=== PATIENT | male | born 1975 | race Hispanic/Latino ===

== ENCOUNTER 2016-07-27 17:15 | Inpatient (IN) | payer MEDICARE ==
[2016-07-27 17:20] VITALS: O2SAT 98
--- NOTE | 2016-07-27 17:58 | ED PDOC ---
HPI: Psych/Substance Abuse Time Seen by Provider: 07/27/16 17:23 Chief Complaint (Nursing): Psychiatric Evaluation Chief Complaint (Provider): depressed History Per: Patient Onset/Duration Of Symptoms: Days (2 weeks) Current Symptoms Are (Timing): Still Present Associated Symptoms: Depression, Suicidal Thoughts, Suicidal Plan (to take pills "wherever I can get them") Additional Complaint(s): Pressure in his head for about 2 years. Past Medical History Reviewed: Historical Data, Nursing Documentation, Vital Signs Vital Signs: Last Vital Signs Temp 99.8 F H 07/27/16 17:17 Pulse 85 07/27/16 17:17 Resp 18 07/27/16 17:17 BP 120/71 07/27/16 17:17 Pulse Ox 98 07/27/16 17:17 - Medical History PMH: Back Problems, Depression Other PMH: CP - Family History Family History: States: Unknown Family Hx - Immunization History Hx Tetanus Toxoid Vaccination: Yes Hx Influenza Vaccination: Yes Hx Pneumococcal Vaccination: No - Home Medications Home Medications: Ambulatory Orders Medication Instructions Recorded Cyclobenzaprine [Flexeril] 5 mg PO TID #90 tab 07/01/16 Escitalopram [Lexapro] 10 mg PO DAILY #30 tab 07/01/16 Pantoprazole [Protonix EC Tab] 40 mg PO BID #60 ect 07/01/16 traZODone [Desyrel] 50 mg PO HS #30 tab 07/01/16 Aspirin [Ecotrin] 81 mg PO DAILY #30 07/13/16 Ergocalciferol [Drisdol 50,000 1 cap PO Q7D #4 cap 07/13/16 Intl Units Cap] Escitalopram [Lexapro] 20 mg PO DAILY #30 tab 07/13/16 Meclizine [Meclizine*] 25 mg PO DAILY #30 tab 07/13/16 hydrOXYzine HCl [Atarax] 25 mg PO BID PRN #60 tab 07/13/16 - Allergies Allergies/Adverse Reactions: Allergies Allergy/AdvReac Type Severity Reaction Status Date / Time phenobarbital Allergy SHORTNESS Verified 07/27/16 17:35 OF BREATH Review of Systems ROS Statement: Except As Marked, All Systems Reviewed And Found Negative (and as per HPI) Gastrointestinal: Positive for: Nausea, Abdominal Pain Neurological: Positive for: Headache, Dizziness. Negative for: Altered Mental Status Psych: Positive for: Depression, Suicidal ideation Physical Exam - Reviewed Nursing Documentation Reviewed: Yes Vital Signs Reviewed: Yes - Physical Exam Appears: Positive for: Non-toxic, In Acute Distress (very sad) Head Exam: Positive for: ATRAUMATIC Skin: Positive for: Dry Eye Exam: Positive for: EOMI, PERRL ENT: Positive for: Other (dry muc memb) Neck: Positive for: Painless ROM, Supple Cardiovascular/Chest: Positive for: Regular Rate, Rhythm, Chest Non Tender. Negative for: Murmur Respiratory: Positive for: Normal Breath Sounds. Negative for: Accessory Muscle Use, Respiratory Distress Gastrointestinal/Abdominal: Positive for: Soft. Negative for: Tenderness Back: Positive for: Normal Inspection. Negative for: Vertebral Tenderness Extremity: Positive for: Normal ROM. Negative for: Pedal Edema Lymphatic: Negative for: Adenopathy Neurologic/Psych: Positive for: Alert, Mood/Affect (sad affect, depressed mood) . Negative for: Motor/Sensory Deficits - Laboratory Results Result Diagrams: 07/27/16 18:20 07/27/16 18:20 Interpretation Of Abn Labs: Mild anemia, otherwise no clinically significant lab abnormalities - ECG ECG: Positive for: Interpreted By Wi ECG Rhythm: Positive for: Normal QRS, Normal ST Segment, Sinus Rhythm O2 Sat by Pulse Oximetry: 98 Pulse Ox Interpretation: Normal - Radiology X-Ray: Interpreted by Wi X-Ray Interpretation: No Acute Disease - Progress ED Course And Treament: 6p Evaluated by CW and pt to be admitted for depression pending medical clearance 1929 Medically stable for psychiatric admission Disposition - Clinical Impression Clinical Impression: Depression - Disposition Disposition Time: 18:00 Condition: SERIOUS - Pt Status Changed To: Hospital Disposition Of: Inpatient - Admit Certification Admit to Inpatient:: After my assessment, the patient will require hospitalization for at least two midnights. This is because of the severity of symptoms shown, intensity of services needed, and/or the medical risk in this patient being treated as an outpatient. - POA Present On Arrival: None
[2016-07-27 18:28] LABS: BASO # 0.1 K/uL (0.0-0.2); BASO % 0.8 % (0.0-2.0); EOS # 0.3 K/uL (0.0-0.7); EOS % 3.6 % (0.0-4.0); HEMOGLOBIN 10.4 g/dL (12.0-18.0); LYMPH # 2.7 K/uL (1.0-4.3); LYMPH % 29.9 % (20.0-40.0); MEAN CELL VOLUME 79.8 fl (80.0-94.0); MEAN CORPUSCULAR HGB CONC 31.4 g/dL (33.0-37.0); MEAN PLATELET VOLUME 7.6 fl (7.2-11.7); MONO # 0.8 K/uL (0.0-0.8); MONO % 9.1 % (0.0-10.0); NEUT # 5.1 K/uL (1.8-7.0); NEUT % 56.6 % (50.0-75.0); RBC 4.15 Mil/uL (4.40-5.90); RED CELL DISTRIBUTION WIDTH 17.4 % (11.5-14.5)
[2016-07-27 18:47] LABS: ALB/GLOB RATIO 1.5 (1.0-2.1); ALBUMIN 4.6 g/dL (3.5-5.0); ALT/SGPT 32 U/L (21-72); AST/SGOT 29 U/L (17-59); BLOOD UREA NITROGEN 17 mg/dl (9-20); CALCIUM 9.5 mg/dL (8.4-10.2); GFR AFRICAN-AMERICAN > 60; GFR NON-AFRICAN AMERICAN > 60; MAGNESIUM 2.3 MG/DL (1.6-2.3)
[2016-07-27 20:10] LABS: BARBITURATES, UR NEGATIVE (NEGATIVE); BENZODIAZEPINES, UR NEGATIVE (NEGATIVE); OPIATES, UR NEGATIVE (NEGATIVE); PHENCYCLIDINE, UR NEGATIVE (NEGATIVE)
[2016-07-27] MEDS ORDERED: Alum-Mag Hydrox-Simethicone Susp (30 mL) PO PRN (21:24)
[2016-07-27] MEDS ORDERED: DiphenhydrAMINE 50 mg/ml Inj IM PRN (21:24)
[2016-07-27] MEDS ORDERED: Magnesium Hydroxide Susp 30 ml UD PO PRN (21:24)
[2016-07-28 09:19] LABS: T4 6.16 ug/dl (5.5-11.0)
--- NOTE | 2016-07-28 10:50 | RAD ---
HISTORY: admission depression COMPARISON: None available. TECHNIQUE: Chest, one view. FINDINGS: LUNGS: No focal consolidation. Please note that chest x-ray has limited sensitivity for the detection of pulmonary masses. PLEURA: No significant pleural effusion identified. No definite pneumothorax . CARDIOVASCULAR: The cardiomediastinal silhouette appears within normal limits of size. OSSEOUS STRUCTURES: Partially imaged spinal fusion hardware, lumbar spine. VISUALIZED UPPER ABDOMEN: Unremarkable. OTHER FINDINGS: None. IMPRESSION: No focal consolidation, significant pleural effusion, or definite pneumothorax identified.
--- NOTE | 2016-07-28 11:42 | PCM.PSYCH ---
Initial Psychiatric Evaluation - Initial Psychiatric Evaluation Type of Admission: Voluntary Legal Status: Capacity Chief Complaint (in patient's own words): i need a better living situation Patient's Reaction to Hospitalization: ambivalent about treatment History of Present Illness and Precipitating Events: pt was recently at [facility] and discharged a few weeks ago. he did not fill his prescriptions, nor did he f/u with treatment. he presented to the ER c/ o feeling suicidal. he states he is depressed, but that nothing helps him. he states he needs stable housing and lack of housing is his major stressor. he reports he has thoughts to overdose and states "if i had pills with my i wouldn' t be here." he is somewhat vague and evasive with details of his depression and treatment in the past. he just shrugs and states nothing really helps. he denies any plan to harm self in the hospital. he is not attending groups this am. Current Medications: Active Medications Generic Name Dose Route Start Last Admin Trade Name Freq PRN Reason Stop Dose Admin Acetaminophen 650 mg 07/27/16 21:24 Tylenol 325mg Tab PO Q4 PRN Pain, moderate (4-7) Al Hydrox/Mg Hydrox/Simethicone 30 ml 07/27/16 21:24 Maalox Plus 30 Ml PO Q4 PRN Dyspepsia Diphenhydramine HCl 50 mg 07/27/16 21:24 Benadryl IM Q6 PRN Extrapyramidal S/S Unable PO Diphenhydramine HCl 50 mg 07/27/16 21:24 Benadryl PO Q6 PRN Extrapyramidal Symptoms Diphenhydramine HCl 50 mg 07/27/16 21:31 Benadryl PO HS PRN Sleep Escitalopram Oxalate 20 mg 07/28/16 11:15 Lexapro PO DAILY STEPHANIE Haloperidol 5 mg 07/27/16 21:24 Haldol PO Q4 PRN Agitation Haloperidol Lactate 5 mg 07/27/16 21:24 Haldol IM Q4 PRN Agitation, Unable to Take PO Lorazepam 2 mg 07/27/16 21:24 Ativan IM Q4 PRN Anxiety/Agitation,Unable PO Lorazepam 2 mg 07/27/16 21:24 Ativan PO Q4 PRN Anxiety/Agitation Magnesium Hydroxide 30 ml 07/27/16 21:24 Milk Of Magnesia PO HS PRN Constipation Trazodone HCl 50 mg 07/28/16 22:00 Desyrel PO HS [facility] Past Psychiatric History - Past Psychiatric History Previous Treatment History: Inpatient Prior Professional Help: will not give details of prior medication trials Prior Psychiatric Treatment: [facility] recently History of Abuse: does not answer History of ETOH/Drug Use: history of cocaine, opioid dependence- pt denies recent use. uds negative from this admission. History of Family Illness: unknown Pertinent Medical Hx (Current Medical&Sleep Prob, Allergies): Allergies Allergy/AdvReac Type Severity Reaction Status Date / Time phenobarbital Allergy SHORTNESS Verified 07/27/16 17:35 OF BREATH Cyclobenzaprine [Flexeril] 5 mg PO TID #90 tab 07/01/16 Escitalopram [Lexapro] 10 mg PO DAILY #30 tab 07/01/16 Pantoprazole [Protonix EC Tab] 40 mg PO BID #60 ect 07/01/16 traZODone [Desyrel] 50 mg PO HS #30 tab 07/01/16 Aspirin [Ecotrin] 81 mg PO DAILY #30 07/13/16 Ergocalciferol [Drisdol 50,000 Intl Units Cap] 1 cap PO Q7D #4 cap 07/13/16 Escitalopram [Lexapro] 20 mg PO DAILY #30 tab 07/13/16 Meclizine [Meclizine*] 25 mg PO DAILY #30 tab 07/13/16 hydrOXYzine HCl [Atarax] 25 mg PO BID PRN #60 tab 07/13/16 history of chronic back pain. Review of Systems - Psychiatric Psychiatric: As Per HPI Mental Status Examination - Personal Presentation Personal Presentation: Looks stated age Additional comments: avoids eye contact, unkempt - Affect Affect: Blunted - Motor Activity Motor Activity: Calm - Reliability in Providing Information Reliability in Providing Information: Other (evasive) - Speech Speech: Organized - Mood Mood: Depressed - Formal Thought Process Formal Thought Process: No Impairment Additional comments: denies a/v hallucinations - Obsessions/Compulsions Obsessions: No Compulsions: No - Cognitive Functions Orientation: Person, Place, Situation, Time Sensorium: Alert Attention/Concentration: Attentive Abstract Thinking: Bradley Estimate of Intelligence: Average Judgement: Intact, as evidence by: Insight regarding need for hospitalization Memory: Recent intact, as evidence by: Ability to recall events of the day, Remote intact, as evidenced by: Abilit to recall sig. life events - Risk Risk: Suicidal (reports plan but no intent to harm self in hospital. ) - Strength & Assets Inventory Strength & Assets Inventory: Intelligence DSM 5 DX - DSM 5 DSM 5 Diagnosis: major depression recurrent moderate cocaine dependence, early remission - Recommended/Plan of Treatment Treatment Recommendations and Plan of Treatment: admit to [facility] for safety and observation gather collateral information adjust medications- restarte lexapro and trazodone hospitalist consult disposition planning encourage participation in groups Projected ELOS: 5-7 days Prognosis: fair - Smoking Cessation Smoking Cessation Initiated: Yes
--- NOTE | 2016-07-28 22:50 | CP.PCM.CON ---
History of Present Illness - History of Present Illness History of Present Illness: Hospitalist Consult H&P (Patient was seen and examined at 5:25 PM 07/28/16 with Psychiatry Nurse) 41 year old male was admitted to in-patient Psychiatry for worsening depression and suicide ideation. Currently upon FULL ROS there is NO chest pain, NO palpitations, NO SOB/Cough/ Wheezing, NO abdominal pain, (+) Nausea as he feels like he ate too much at dinner, NO dysphagia/odynophagia, NO burning/pain with urination, NO headaches, NO new changes in vision/eye pain/blurriness of vision/loss of vision, NO new changes in hearing/ear pain/loss of hearing/tinnitus, NO paresthesias, NO edema. PMHx: Polysubstance Abuse (Cocaine and Opioids), Chronic Back Pain PSHx: Gastric Bypass, Unspecified Back Surgery ALL: Phenobarbital Medications: Please see list Social Hx: (+) Tobacco 1.5 packs per day, (+) Cocaine/Opioids Physical Exam - Constitutional Appears: Non-toxic, No Acute Distress - Head Exam Head Exam: ATRAUMATIC, NORMAL INSPECTION, NORMOCEPHALIC - Eye Exam Eye Exam: EOMI, Normal appearance, PERRL Pupil Exam: NORMAL ACCOMODATION, PERRL - ENT Exam ENT Exam: Mucous Membranes Dry, Normal External Ear Exam, Normal Oropharynx Additional comments: Oral Mucosa and Nasal Turbinates are dry - Neck Exam Neck exam: Positive for: Normal Inspection Additional comments: NO thyromegaly NO cervical/supraclavicular/submandibular lymphadenopathy - Respiratory Exam Respiratory Exam: Clear to Auscultation Bilateral, NORMAL BREATHING PATTERN Additional comments: CTA B/L NO R/R/W - Cardiovascular Exam Cardiovascular Exam: REGULAR RHYTHM, +S1, +S2 Additional comments: NO M/R/G - GI/Abdominal Exam GI & Abdominal Exam: Normal Bowel Sounds, Soft Additional comments: BSx4, Soft, NT, ND, NO HSM NO guarding/rebound tenderness - Extremities Exam Extremities exam: Positive for: normal inspection Additional comments: Pulses are strong and equal Capillary Refill is 2 seconds NO edema NO cyanosis - Neurology CN II through XII are grossly intact Assessment and Plan: 1). HTN Norvasc 5 mg PO 1x/day NO Beta Tiny considering history of cocaine abuse 2). Anemia Differential suggests Iron Deficiency F/U Iron Studies for 07/29/16 3). Major Depression, Recurrent Treatment as per Psychiatry 4). Polysubstance Abuse Treatment as per Psychiatry 5). Suicide Ideation Treatment as per Psychiatry Andrew Flor D.O. Past Patient History - Past Social History Smoking Status: Heavy Smoker > 10 Cigarettes Daily - CARDIAC Hx Cardiac Disorders: No Hx Hypertension: No - PULMONARY Hx Respiratory Disorders: No Hx Tuberculosis: No - NEUROLOGICAL Hx Neurological Disorder: No HX Cerebrovascular Accident: No Hx Seizures: No Other/Comment: cerebral palsy - HEENT Hx HEENT Problems: No - RENAL Hx Chronic Kidney Disease: No - ENDOCRINE/METABOLIC Hx Endocrine Disorders: No - HEMATOLOGICAL/ONCOLOGICAL Hx Cancer: No Hx Human Immunodeficiency Virus (HIV): No - INTEGUMENTARY Hx Dermatological Problems: No - MUSCULOSKELETAL/RHEUMATOLOGICAL Hx Musculoskeletal Disorders: No - GASTROINTESTINAL Other/Comment: gastric bypass 2009 - GENITOURINARY/GYNECOLOGICAL Hx Genitourinary Disorders: No Hx Sexually Transmitted Disorders: No - PSYCHIATRIC Hx Substance Use: Yes - SURGICAL HISTORY Hx Gastric Bypass Surgery: Yes (2009) - ANESTHESIA Hx Anesthesia: Yes Hx Anesthesia Reactions: No Hx Malignant Hyperthermia: No Has any member of the family had a problem w/ anesthesia?: No Meds Allergies/Adverse Reactions: Allergies Allergy/AdvReac Type Severity Reaction Status Date / Time phenobarbital Allergy SHORTNESS Verified 07/27/16 17:35 OF BREATH - Medications Medications: Current Medications Acetaminophen (Tylenol 325mg Tab) 650 mg PO Q4 PRN PRN Reason: Pain, moderate (4-7) Al Hydrox/Mg Hydrox/Simethicone (Maalox Plus 30 Ml) 30 ml PO Q4 PRN PRN Reason: Dyspepsia Diphenhydramine HCl (Benadryl) 50 mg IM Q6 PRN PRN Reason: Extrapyramidal S/S Unable PO Diphenhydramine HCl (Benadryl) 50 mg PO Q6 PRN PRN Reason: Extrapyramidal Symptoms Diphenhydramine HCl (Benadryl) 50 mg PO HS PRN PRN Reason: Sleep Escitalopram Oxalate (Lexapro) 20 mg PO DAILY [facility] Last Admin: 07/28/16 16:40 Dose: 20 mg Haloperidol (Haldol) 5 mg PO Q4 PRN PRN Reason: Agitation Haloperidol Lactate (Haldol) 5 mg IM Q4 PRN PRN Reason: Agitation, Unable to Take PO Lorazepam (Ativan) 2 mg IM Q4 PRN PRN Reason: Anxiety/Agitation,Unable PO Lorazepam (Ativan) 2 mg PO Q4 PRN PRN Reason: Anxiety/Agitation Magnesium Hydroxide (Milk Of Magnesia) 30 ml PO HS PRN PRN Reason: Constipation Nicotine (Nicoderm Cq) 1 patch TD DAILY STEPHANIE Last Admin: 07/28/16 16:41 Dose: Not Given Trazodone HCl (Desyrel) 50 mg PO HS [facility] Results - Vital Signs Recent Vital Signs: Last Vital Signs Temp 98.4 F 07/28/16 16:23 Pulse 62 07/28/16 16:23 Resp 18 07/28/16 16:23 BP 149/96 H 07/28/16 16:23 Pulse Ox 98 07/27/16 19:59 - Labs Result Diagrams: 07/27/16 18:20 07/27/16 18:20 Labs: Laboratory Results - last 24 hr 07/27/16 07/28/16 07/28/16 19:10 08:21 08:21 POC Glucose (mg/dL) 89 Hemoglobin A1c 5.8 Triglycerides 128 Cholesterol 148 LDL Cholesterol Direct 86 HDL Cholesterol 43 Thyroxine (T4) 6.16 TSH 3rd Generation 0.63 RPR 07/28/16 08:21 POC Glucose (mg/dL) Hemoglobin A1c Triglycerides Cholesterol LDL Cholesterol Direct HDL Cholesterol Thyroxine (T4) TSH 3rd Generation RPR Nonreactive
--- NOTE | 2016-07-28 23:59 | CARD ---
APPROVED REPORT EKG Measurement Heart [id number] ID [id number] <Conclusion> Normal sinus rhythm Normal ECG
[2016-07-29 07:16] LABS: BASO # 0.1 K/uL (0.0-0.2); BASO % 0.8 % (0.0-2.0); EOS # 0.5 K/uL (0.0-0.7); EOS % 7.4 % (0.0-4.0); HEMOGLOBIN 9.7 g/dL (12.0-18.0); LYMPH # 2.1 K/uL (1.0-4.3); MEAN CELL VOLUME 78.3 fl (80.0-94.0); MEAN CORPUSCULAR HEMOGLOBIN 25.3 pg (27.0-31.0); MEAN CORPUSCULAR HGB CONC 32.3 g/dL (33.0-37.0); MEAN PLATELET VOLUME 7.6 fl (7.2-11.7); MONO # 0.5 K/uL (0.0-0.8); MONO % 7.2 % (0.0-10.0); NEUT # 3.4 K/uL (1.8-7.0); NEUT % 52.6 % (50.0-75.0); NRBC % 0.1 % (0.0-0.0); RBC 3.83 Mil/uL (4.40-5.90); RED CELL DISTRIBUTION WIDTH 17.3 % (11.5-14.5); WHITE BLOOD COUNT 6.4 K/uL (4.8-10.8)
[2016-07-29 08:03] LABS: IRON 42 ug/dL (49-181)
[2016-07-29 08:12] LABS: % IRON SATURATION 12 % (20-55); TOTAL IRON BINDING CAPACITY 350 ug/dL (250-450)
--- NOTE | 2016-07-29 11:29 | PCM.PYCHPN ---
Psychiatric Progress Note - Psychiatric Progress Note Patient seen today, length of contact: discussed with team Patient Chief Complaint: i'm too tired Problems Identified/Issues Discussed: pt refused to come meet with team. denies med side effects. states he is too tired after fire alarms and feels dizzy. passive suicidal thoughts. focused on his lack of housing. Medication Change: No Medical Record Reviewed: Yes Mental Status Examination - Cognitive Function Orientation: Person, Place, Situation, Time Memory: Intact Attention: WNL Concentration: WNL Association: WNL Fund of Knowledge: [facility] Decription of patient's judgement and insights: fair - Mood Mood: Depressed - Affect Affect: Blunted - Speech Speech: Soft - Formal Thought Process Formal Thought Process: No Impairment Psychotic Thoughts and Behaviors: denies any a/v hallucinations - Suicidal Ideation Suicidal Ideation: Yes Plan: denies any current plan or intent - Homicidal Ideation Homicidal Ideation: No Goal/Treatment Plan - Goal/Treatment Plan Need for Continued Stay: Remain at risks for inpatient hospitalization, Discharge may exacerbated symptoms Progress Toward Problem(s) and Goals/Treatment Plan: major depression recurrent moderate polysubstance dependence in early remission continue with current treatment encourage pt to participate in groups refer to [place] Estimated Date of D/C: 08/02/16
--- NOTE | 2016-07-30 11:05 | PCM.PYCHPN ---
Psychiatric Progress Note - Psychiatric Progress Note Patient seen today, length of contact: Patient evaluated, case discussed with staff Patient Chief Complaint: "I'm still depressed" Problems Identified/Issues Discussed: Patient was observed lying in bed. He was not motivated to leave his room to talk with the financial underwriter. He continues to report depressive symptoms w/ vague passive suidical ideation w/o plan or intent. No psychosis/paranoia/delusions/ HI. Medication Change: No Medical Record Reviewed: Yes Mental Status Examination - Cognitive Function Orientation: Person, Place, Situation, Time Memory: Intact Attention: WNL Concentration: WNL Association: [facility] Fund of Knowledge: [facility] Decription of patient's judgement and insights: Fair I/J - Mood Mood: Depressed - Affect Affect: Constricted - Speech Speech: Appropriate - Formal Thought Process Formal Thought Process: No Impairment Psychotic Thoughts and Behaviors: No AH/VH/paranoia - Suicidal Ideation Suicidal Ideation: Yes Plan: Vague passive suicidal ideation w/o plan or intent - Homicidal Ideation Homicidal Ideation: No Goal/Treatment Plan - Goal/Treatment Plan Need for Continued Stay: Remain at risks for inpatient hospitalization, Discharge may exacerbated symptoms Progress Toward Problem(s) and Goals/Treatment Plan: Major depression recurrent moderate Polysubstance dependence in early remission Continue with Lexapro 20 mg PO Daily and Trazodone 50 mg PO HS Encourage pt to participate in groups Refer to [place] Estimated Date of D/C: 08/02/16 - Smoking Cessation Smoking Cessation Initiated: Yes
--- NOTE | 2016-07-31 10:47 | PCM.PYCHPN ---
Psychiatric Progress Note - Psychiatric Progress Note Patient seen today, length of contact: Patient evaluated, case discussed with staff Patient Chief Complaint: "I'm still depressed" Problems Identified/Issues Discussed: Patient was observed lying in bed. He reports his mood as "blah" and answered most questions with sound effects (intentional evasion of questions, not psychotic). He continues to report depressive symptoms, but denies any ideation to harm himself. No psychosis/paranoia/delusions/HI. Medication Change: No Medical Record Reviewed: Yes Mental Status Examination - Cognitive Function Orientation: Person, Place, Situation, Time Memory: Intact Attention: WNL Concentration: WNL Association: [facility] Fund of Knowledge: [facility] Decription of patient's judgement and insights: Fair I/J - Mood Mood: Depressed - Affect Affect: Constricted - Speech Speech: Appropriate - Formal Thought Process Formal Thought Process: No Impairment Psychotic Thoughts and Behaviors: No AH/VH/paranoia - Suicidal Ideation Suicidal Ideation: No - Homicidal Ideation Homicidal Ideation: No Goal/Treatment Plan - Goal/Treatment Plan Need for Continued Stay: Remain at risks for inpatient hospitalization, Discharge may exacerbated symptoms Progress Toward Problem(s) and Goals/Treatment Plan: Major depression recurrent moderate Polysubstance dependence in early remission Continue with Lexapro 20 mg PO Daily and Trazodone 50 mg PO HS Encourage pt to participate in groups Refer to [place] Estimated Date of D/C: 08/02/16
--- NOTE | 2016-08-01 11:55 | PCM.PYCHPN ---
Psychiatric Progress Note - Psychiatric Progress Note Patient seen today, length of contact: in treatment team Patient Chief Complaint: nobody helps me Problems Identified/Issues Discussed: pt came to team with prompting. pt sitting in his own urine in his bed and seems unphased by this. states he is not incontinent. pt has not bathed. does not leave his bed without max prompting. he continues to states that nobody wants to help him. he refuses to let this policy writer typist add abilify, but is accepting seroquel to help augment his antidepressant. he denies any auditory hallucinations. Medication Change: Yes (add seroquel) Medical Record Reviewed: Yes Mental Status Examination - Cognitive Function Orientation: Person, Place, Situation, Time Memory: Intact Attention: WNL Concentration: WNL Association: WNL Fund of Knowledge: [facility] Decription of patient's judgement and insights: fair - Mood Mood: Depressed - Affect Affect: Blunted - Speech Speech: Soft - Formal Thought Process Formal Thought Process: Other (blunted affect, lacks motivation, psychomotor slowing) - Suicidal Ideation Suicidal Ideation: No - Homicidal Ideation Homicidal Ideation: No Goal/Treatment Plan - Goal/Treatment Plan Need for Continued Stay: Remain at risks for inpatient hospitalization, Discharge may exacerbated symptoms Progress Toward Problem(s) and Goals/Treatment Plan: major depression recurrent severe polysubstance dependence in early remission continue with current treatment and add seroquel to help augment lexapro and target any psychotic symptoms rn to make hospitalist aware of incontinence encourage pt to participate in groups refer to [place] Estimated Date of D/C: 08/02/16
[2016-08-01] MEDS: Multivitamin With Minerals Tab PO SCH (17:51)
[2016-08-02] MEDS: Multivitamin With Minerals Tab PO SCH (09:44)
--- NOTE | 2016-08-02 10:34 | PCM.PYCHPN ---
Psychiatric Progress Note - Psychiatric Progress Note Patient seen today, length of contact: discussed with team Patient Chief Complaint: nothing helps Problems Identified/Issues Discussed: pt initially refusing to get out of bed to get his medications today. states he is tired. states he doesn't participate in treatment because nothing helps him. his goal is to be less depressed and less suicidal. he denies any suicidal plans or intent now. he denies se with seroquel. he is irritable when encouraged to also participate in his treatment by leaving his room and caring for himself. no urinary incontinence today Medication Change: Yes (add wellbutrin) Medical Record Reviewed: Yes Mental Status Examination - Cognitive Function Orientation: Person, Place, Situation, Time Memory: Intact Attention: WNL Concentration: WNL Association: WNL Fund of Knowledge: [facility] Decription of patient's judgement and insights: fair - Mood Mood: Depressed - Affect Affect: Blunted - Speech Speech: Soft - Formal Thought Process Formal Thought Process: Other (blunted affect, lacks motivation, psychomotor slowing) - Suicidal Ideation Suicidal Ideation: Yes Plan: passive thoughts, no plan and no intent - Homicidal Ideation Homicidal Ideation: No Goal/Treatment Plan - Goal/Treatment Plan Need for Continued Stay: Remain at risks for inpatient hospitalization, Discharge may exacerbated symptoms Progress Toward Problem(s) and Goals/Treatment Plan: major depression recurrent severe polysubstance dependence in early remission continue with current treatment: will add wellbutrin to target depression continue lexapro and seroquel encourage pt to participate in groups refer to [place] Estimated Date of D/C: 08/02/16 - Smoking Cessation Smoking Cessation Initiated: Yes
[2016-08-02] MEDS: buPROPion SR 150 MG TABLET PO SCH (13:44)
[2016-08-02 17:09] VITALS: BMI 22.1
[2016-08-03] MEDS: Multivitamin With Minerals Tab PO SCH (13:30)
[2016-08-03] MEDS: buPROPion SR 150 MG TABLET PO SCH (13:31)
--- NOTE | 2016-08-03 17:24 | PCM.PYCHPN ---
Psychiatric Progress Note - Psychiatric Progress Note Patient seen today, length of contact: discussed with team, chart reviewed 35min spent Patient Chief Complaint: feeling sad, being homeless Problems Identified/Issues Discussed: alteration in mood alteration in domicile Medical Problems: per chart pt noted with decreased cbc/diff Diagnostic Results: per psychiatry per medicine per nursing per social work per recreational therapy DSM 5 Symptoms Update: anhedonia isolation Medication Change: No Medical Record Reviewed: Yes Mental Status Examination - Cognitive Function Orientation: Person, Place, Situation, Time Memory: Intact Attention: WNL Concentration: WNL Association: WNL Fund of Knowledge: WN Decription of patient's judgement and insights: impaired - Mood Mood: Depressed - Affect Affect: Blunted - Speech Speech: Soft - Formal Thought Process Formal Thought Process: Other (blunted affect, lacks motivation, psychomotor slowing) - Suicidal Ideation Suicidal Ideation: Yes - Homicidal Ideation Homicidal Ideation: No Goal/Treatment Plan - Goal/Treatment Plan Need for Continued Stay: Remain at risks for inpatient hospitalization, Discharge may exacerbated symptoms Progress Toward Problem(s) and Goals/Treatment Plan: inpt milieu adjust meds per status recently had wellbutrin added in am-will continue to assess discharge planning in progress Estimated Date of D/C: 08/05/16 - Smoking Cessation Smoking Cessation Initiated: No Reason for not providing: pt deferred
[2016-08-03 18:37] LABS: BASO % 0.6 % (0.0-2.0); EOS # 0.4 K/uL (0.0-0.7); EOS % 5.6 % (0.0-4.0); HEMOGLOBIN 10.2 g/dL (12.0-18.0); LYMPH % 29.6 % (20.0-40.0); MEAN CORPUSCULAR HGB CONC 31.6 g/dL (33.0-37.0); MONO # 0.4 K/uL (0.0-0.8); MONO % 6.3 % (0.0-10.0); NEUT # 3.9 K/uL (1.8-7.0); NEUT % 57.9 % (50.0-75.0); RBC 4.09 Mil/uL (4.40-5.90); RED CELL DISTRIBUTION WIDTH 17.2 % (11.5-14.5); WHITE BLOOD COUNT 6.8 K/uL (4.8-10.8)
--- NOTE | 2016-08-04 09:56 | PCM.PYCHPN ---
Psychiatric Progress Note - Psychiatric Progress Note Patient seen today, length of contact: discussed with team Patient Chief Complaint: its the same Problems Identified/Issues Discussed: pt not attending groups. denies anything is helping. focused on being homeless and wanting housing. he is caring for adls, eating meals. no agitation. Medication Change: No Medical Record Reviewed: Yes Mental Status Examination - Cognitive Function Orientation: Person, Place, Situation, Time Memory: Intact Attention: WNL Concentration: WNL Association: WNL Fund of Knowledge: [facility] Decription of patient's judgement and insights: fair - Mood Mood: Depressed - Affect Affect: Blunted - Speech Speech: Soft - Formal Thought Process Formal Thought Process: Other (blunted affect, lacks motivation, psychomotor slowing) - Suicidal Ideation Suicidal Ideation: No Plan: denies - Homicidal Ideation Homicidal Ideation: No Goal/Treatment Plan - Goal/Treatment Plan Need for Continued Stay: Remain at risks for inpatient hospitalization, Discharge may exacerbated symptoms Progress Toward Problem(s) and Goals/Treatment Plan: 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
[2016-08-04] MEDS: Multivitamin With Minerals Tab PO SCH (10:36)
[2016-08-04] MEDS: buPROPion SR 150 MG TABLET PO SCH (10:37)
[2016-08-04 19:32] LABS: BASO # 0.1 K/uL (0.0-0.2); BASO % 0.7 % (0.0-2.0); EOS # 0.4 K/uL (0.0-0.7); EOS % 4.3 % (0.0-4.0); HEMOGLOBIN 9.9 g/dL (12.0-18.0); LYMPH # 3.6 K/uL (1.0-4.3); LYMPH % 37.8 % (20.0-40.0); MEAN CELL VOLUME 79.2 fl (80.0-94.0); MEAN CORPUSCULAR HEMOGLOBIN 25.3 pg (27.0-31.0); MEAN CORPUSCULAR HGB CONC 31.9 g/dL (33.0-37.0); MEAN PLATELET VOLUME 7.6 fl (7.2-11.7); MONO % 10.7 % (0.0-10.0); NEUT # 4.4 K/uL (1.8-7.0); NEUT % 46.5 % (50.0-75.0); NRBC % 0.1 % (0.0-0.0); RBC 3.9 Mil/uL (4.40-5.90); RED CELL DISTRIBUTION WIDTH 17.4 % (11.5-14.5); WHITE BLOOD COUNT 9.5 K/uL (4.8-10.8)
[2016-08-04 19:37] LABS: BLOOD UREA NITROGEN 10 mg/dl (9-20); CALCIUM 9.2 mg/dL (8.4-10.2); GFR AFRICAN-AMERICAN > 60; GFR NON-AFRICAN AMERICAN > 60
[2016-08-05 08:41] VITALS: BP 139/83; PULSE 69; RESP 18; TEMP 98.4
[2016-08-05] MEDS: Multivitamin With Minerals Tab PO SCH (09:33)
[2016-08-05] MEDS: buPROPion SR 150 MG TABLET PO SCH (09:34)
--- NOTE | 2016-08-05 09:50 | PCM.PYCHDC ---
Mental Status Examination - Mental Status Examination Orientation: Person, Place, Situation, Time Memory: Intact Mood: Anxious (in anticipation of discharge) Affect: Broad Speech: Appropriate Attention: WNL Concentration: WNL Association: WNL Fund of Knowledge: WNL Formal Thought Process: No Impairment Description of patient's judgement and insight: fair Psychotic Thoughts and Behaviors: denies any a/v hallucinations Suicidal Ideation: No Current Homicidal Ideation?: No Plan: pt denies any suicidal or homicidal thoughts/plans or intent Discharge Summary - Discharge Note Reason for Hospitalization: pt stated he was depressed because he didn't have stable housing. was endorsing suicidal thoughts because of this frustration Psychiatric History (includes Medical, Family, Personal Hx): history of recent admission to [facility]. past hist. of cocaine abuse Laboratory Data: Abnormal Lab Results 08/04/16 08/04/16 08/04/16 18:59 19:26 19:26 WBC 9.5 RBC 3.90 L Hgb 9.9 L Hct 30.9 L MCV 79.2 L MCH 25.3 L MCHC 31.9 L RDW 17.4 H Plt Count 335 MPV 7.6 Neut % (Auto) 46.5 L Lymph % (Auto) 37.8 Kaufman % (Auto) 10.7 H Eos % (Auto) 4.3 H Baso % (Auto) 0.7 Neut # 4.4 Lymph # 3.6 Kaufman # 1.0 H Eos # 0.4 Baso # 0.1 Sodium 139 Potassium 4.2 Chloride 101 Carbon Dioxide 27 Anion Gap 15 BUN 10 Creatinine 0.7 L Est GFR ( Amer) > 60 Est GFR (Non-Af Amer) > 60 POC Glucose (mg/dL) 101 Random Glucose 104 Calcium 9.2 Troponin I < 0.0120 urine drug screen negative Consultations:: List each consultation separately and include: 1. Reason for request. 2. Findings. 3. Follow-up Consultations: seen by biomedical analytical scientist, no acute issues Summary of Hospital Course include:: 1. Description of specific treatment plan utilized for patients during their course of treatmen. 2. Summarize the time- course for resolution of acute symptoms and/or regressed behaviors. 3. Describe issues identified and worked on during hospitalization. 4. Describe medication utilized. 5. Describe medical problems identified and treated. 6. Reassessment of suicide risk Summary of Hospital Course: pt was recently at [facility] and discharged a few weeks ago. he did not fill his prescriptions, nor did he f/u with treatment. he presented to the ER c/ o feeling suicidal. he states he is depressed, but that nothing helps him. he states he needs stable housing and lack of housing is his major stressor. he reports he has thoughts to overdose and states "if i had pills with my i wouldn' t be here." he is somewhat vague and evasive with details of his depression and treatment in the past. he just shrugs and states nothing really helps. he denies any plan to harm self in the hospital. he is not attending groups this am. pt was admitted to [facility] and oriented to the unit. he was placed on routine safety protocols. he was seen by the treatment team and the biomedical analytical scientist. his lexapro was continued and he was started on seroquel to help with sleep/ anxiety. wellbutrin was added to help boost his mood. he was ambivalent about the helpfulness of treatment and continued to focus exclusively on wanting housing. he expressed appreciate for the referral to the [facility]. His mood did improve during his stay and he was no longer endorsing any suicidal or homicidal thoughts at the time of discharge. he was agreeing to follow up with aftercare appointments. - Final Diagnosis (DSM 5) Condition upon Discharge: SERIOUS DSM 5: major depression recurrent moderate history of cocaine dependence early remission Disposition: HOME/ ROUTINE Follow-up Treatment Plan: follow up with aftercare as directed take medications as prescribed do not use alcohol, tobacco or other illicit substances call 911 if any suicidal or homicidal thoughts Prescriptions/Medication Reconciliation: amLODIPine [Norvasc] 5 mg PO DAILY #30 tab buPROPion SR [Wellbutrin SR 150 MG] 150 mg PO DAILY #30 tab Escitalopram [Lexapro] 20 mg PO DAILY #30 tab Nicotine 14 mg/24 hr [Nicoderm CQ] 1 patch TD DAILY #30 patch QUEtiapine [SEROquel] 50 mg PO HS #30 tab - Smoking Cessation Smoking Cessation Medication prescribed: Yes - Antipsychotic Medications Pt discharged on 2 or more routine antipsychotic medications: No
--- NOTE | 2016-08-05 17:18 | CARD ---
APPROVED REPORT EKG Measurement Heart [id number] <Conclusion> Normal sinus rhythm Normal ECG
== END 2016-08-05 15:13 | disposition home or self-care (01) | DRG 885 ==
LOC: H.ER 17:15 → H.ERHOLD 18:30 → H.PSYCH 21:06
PROVIDERS: ADMIT Psychiatry & Neurology Psychiatry; ATTEND Psychiatry & Neurology Psychiatry
PROC: GZHZZZZ Group Psychotherapy (ICD-10-PCS; principal; 2016-07-27)
PROC: GZ58ZZZ Individual Psychotherapy, Cognitive-Behavioral (ICD-10-PCS; 2016-07-27)
DX: F33.2 Major depressive disorder, recurrent severe without psychotic features (principal); R45.851 Suicidal ideations; I10 Essential (primary) hypertension; F14.21 Cocaine dependence, in remission; D50.8 Other iron deficiency anemias; G80.9 Cerebral palsy, unspecified; R32 Unspecified urinary incontinence; F17.210 Nicotine dependence, cigarettes, uncomplicated; Z59.0 Homelessness; Z79.82 Long term (current) use of aspirin; Z79.899 Other long term (current) drug therapy; Z98.84 Bariatric surgery status